=== PATIENT | male | born 1955 | race Caucasian/White ===

== ENCOUNTER 2017-01-26 08:55 | Day surgery (SDC) | payer BC ==
[~2017-01-26] VITALS: Ht 177.8 cm; Wt 91.0 kg
[~2017-01-26 08:55] MED LIST: BENICAR HCT 401 EAC1 PO; BRINTELLIX20 MG PO; CLONAZEPAM0.5 MG PO; FISH OIL 1,2001 EAC5 PO; NORVASC5 MG PO; PRAVACHOL80 MG PO; PRISTIQ100 MG PO; PROTONIX40 MG PO; TRICOR145 MG PO
[2017-01-26 09:46] VITALS: BP 171/94
[2017-01-26 13:43] VITALS: BP 173/98
[2017-01-26 14:11] VITALS: BP 192/98
== END 2017-01-26 14:22 | disposition home or self-care (01) ==
LOC: SDC 08:55
PROC: 08B53ZZ Excision of Left Vitreous, Percutaneous Approach (ICD-10-PCS; principal; 2017-01-26)
PROC: 085F3ZZ Destruction of Left Retina, Percutaneous Approach (ICD-10-PCS; principal; 2017-01-26)
DX: H43.392 Other vitreous opacities, left eye (principal); I10 Essential (primary) hypertension; G47.30 Sleep apnea, unspecified; K21.9 Gastro-esophageal reflux disease without esophagitis
CPT/HCPCS: J0690; J0713; J2795; J3300